=== PATIENT | male | born 1945 | race Caucasian/White ===

== ENCOUNTER 2017-10-28 23:30 | Observation (INO) | payer MEDICARE ==
[2017-10-29 00:27] LABS: #Basophils 0.1 thou/uL (0.0-0.2); #Eosinphils 0.8 thou/uL (0.0-0.7); #Lymphocytes 2.6 thou/uL (1.20-3.40); #Monocytes 0.7 thou/uL (0.11-0.59); #Neutrophils 4.1 thou/uL (1.40-6.50); %Basophils 1.5 % (0.0-1.0); %Lymphocytes 31.6 % (21.0-51.0); %Monocytes 7.9 % (0.0-10.0); Hemoglobin 14.1 g/dL (14.0-18.0); Mean Corpuscular HGB CONC 33.8 g/dL (32.0-36.0); Mean Corpuscular Hemoglobin 32.2 pg (27.0-31.0); Mean Corpuscular Volume 95.4 fL (78.0-98.0); Mean Platelet Volume 8.3 fL (7.4-10.4); Platelet Count 181 thou/uL (130-400); RBC Distribution Width 11.1 % (11.5-14.5); Red Blood Cell (RBC) Count 4.38 mill/uL (4.70-6.10); White Blood Cell (WBC) Count 8.3 thou/uL (4.8-10.8)
[2017-10-29 00:48] LABS: ALT (SGPT) 33 U/L (8-55); AST (SGOT) 21 U/L (5-34); Alkaline Phosphatase 74 U/L (40-150); Anion Gap 16 mmol/L (10-20); BUN (Urea Nitrogen) 23 mg/dL (8.4-25.7); Bilirubin, Total 0.3 mg/dL (0.2-1.2); Calc. Creatinine Clearance 0 mL/min (70-130); Calcium 9.3 mg/dL (7.8-10.44); Carbon Dioxide 20 mmol/L (23-31); Chloride 108 mmol/L (98-107); Estimated GFR-MDRD 65; Globulin 2.6 g/dL (2.4-3.5); Glucose 101 mg/dL (83-110); Potassium 4.5 mmol/L (3.5-5.1); Protein, Total 6.6 g/dL (5.8-8.1); Sodium 139 mmol/L (136-145)
[2017-10-29 00:51] LABS: Troponin I 0.019 ng/mL (< 0.028)
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
[2017-10-29] MEDS ORDERED: Ondansetron ODT 4 MG TAB PO PRN (02:42)
[2017-10-29] MEDS ORDERED: Ondansetron HCl/PF 4 MG/2 ML Vial IVP PRN (02:42)
[2017-10-29] MEDS ORDERED: Acetaminophen 650 MG Suppository PR PRN (02:42)
[2017-10-29] MEDS ORDERED: Nitroglycerin 0.4 MG TAB (25 Tab Bottle) PO PRN (02:42)
[2017-10-29] MEDS ORDERED: Acetaminophen 325 MG TAB PO PRN (02:42)
[2017-10-29 03:52] VITALS: BMI 30.5
[2017-10-29 04:05] LABS: #Eosinphils 0.7 thou/uL (0.0-0.7); #Lymphocytes 2.8 thou/uL (1.20-3.40); #Monocytes 0.6 thou/uL (0.11-0.59); #Neutrophils 3.3 thou/uL (1.40-6.50); %Basophils 0.6 % (0.0-1.0); %Lymphocytes 37.4 % (21.0-51.0); %Monocytes 7.4 % (0.0-10.0); %Neutrophils 44.6 % (42.0-75.0); Hemoglobin 14.2 g/dL (14.0-18.0); Mean Corpuscular HGB CONC 33.9 g/dL (32.0-36.0); Mean Corpuscular Hemoglobin 32.2 pg (27.0-31.0); Mean Corpuscular Volume 95.1 fL (78.0-98.0); Mean Platelet Volume 8.5 fL (7.4-10.4); Platelet Count 164 thou/uL (130-400); Red Blood Cell (RBC) Count 4.39 mill/uL (4.70-6.10); White Blood Cell (WBC) Count 7.4 thou/uL (4.8-10.8)
[2017-10-29 04:27] LABS: ALT (SGPT) 32 U/L (8-55); AST (SGOT) 21 U/L (5-34); Albumin 3.9 g/dL (3.4-4.8); Alkaline Phosphatase 67 U/L (40-150); Anion Gap 15 mmol/L (10-20); BUN (Urea Nitrogen) 22 mg/dL (8.4-25.7); Bilirubin, Total 0.5 mg/dL (0.2-1.2); Calc. Creatinine Clearance 88 mL/min (70-130); Calcium 9.1 mg/dL (7.8-10.44); Carbon Dioxide 21 mmol/L (23-31); Cardiac Risk 4.8 (Less than 4.5); Chloride 107 mmol/L (98-107); Cholesterol 150 mg/dl (< 200 Desired); Estimated GFR-MDRD 70; Globulin 2.4 g/dL (2.4-3.5); Glucose 92 mg/dL (83-110); HDL Cholesterol 31 mg/dL (>60 Neg Risk); LDL Cholesterol, Calculated 91 mg/dL; Potassium 4.3 mmol/L (3.5-5.1); Protein, Total 6.3 g/dL (5.8-8.1); Sodium 139 mmol/L (136-145); Triglycerides 138 mg/dL (Less than 150)
[2017-10-29 04:28] LABS: Troponin I 0.022 ng/mL (< 0.028)
[2017-10-29] MEDS ORDERED: Enoxaparin Sodium 40 MG/0.4 ML SYRINGE SC SCH (09:00)
--- NOTE | 2017-10-29 11:30 | NM ---
CARDIAC SPECT: CLINICAL HISTORY: 61-year-old male with chest pain. TECHNIQUE: A myocardial perfusion scan was performed using the single isotope one day protocol with technetium-9 9m sestamibi. 9 mCi were injected intravenously for the rest exam followed by 27 mCi for the stress e xam. Exercise stress was monitored and interpreted by Dr. Duvall. FINDINGS: Homogeneous tracer distribution is seen in the myocardial segments on stress and rest images without fixed or reversible defects. GATED SPECT LVEF: 58%. WALL MOTION EXAM: Normal. IMPRESSION: Normal myocardial perfusion scan. POS: [facility]
[2017-10-29] MEDS ORDERED: Amlodipine 5 MG TAB PO SCH (12:00)
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
[2017-10-29 16:05] VITALS: BP 126/75; TEMP 98
[2017-10-29] MEDS ORDERED: Rosuvastatin 10 MG TAB PO SCH (21:00)
--- NOTE | 2017-10-30 13:09 | DIS-2 ---
LOCATION: [facility] in [place], [place] DATE OF ADMISSION: 10/29/2017 DATE OF DISCHARGE: 10/29/2017 RESIDENT PHYSICIAN: Shade Turner DO ADMITTING ATTENDING: Benjamin Bansal MD DISCHARGE ATTENDING: Benjamin Bansal MD CONSULTATIONS: Cardiology, Dr. Anjel Duvall PROCEDURES: Exercise nuclear stress test on 10/29/2017 showed normal myocardial perfusion exam, norm al wall motion exam with a normal ejection fraction. PRIMARY DIAGNOSIS: Exertional angina. SECONDARY DIAGNOSIS: Hypertension. DISCHARGE MEDICATIONS: 1. Aspirin 81 mg daily. 2. Amlodipine 5 mg p.o. daily. 3. Nitrostat 0.4 mg sublingual p.r.n. 4. Rosuvastatin 10 mg p.o. at bedtime. DISCONTINUED MEDICATIONS: None. HISTORY OF PRESENT ILLNESS AND HOSPITAL COURSE: The patient is an extremely fit 71-year-old male who initially presented to the ED with a 3-month history of occasional exertional angina, which had subs equently become more persistent the night prior to presentation to the ED. He reports he had adjuste d his exercise regimen prior to presentation over the last few months to resolve the chest pain. He reports the chest pain would come when he reached approximately 73% of his maximum heart rate and it would subside with a decrease in his heart rate. He has no family history of cardiac disease and he works as a regional sales trainer. He is otherwise healthy and had no other complaints on admission. He w as admitted ultimately for observation to rule out acute myocardial infarction and his troponins siria ined negative throughout this hospital stay; last troponin level being 0.022. CBC and CMP were perfo rmed, all of which were within normal limits. His fasting lipid panel showed triglyceride level 138, cholesterol level 150, LDL of 91, HDL of 31. Overall, the patient had an uncomplicated hospital sta y and was ultimately diagnosed with exertional angina with instruction to follow up with his primary care provider. He underwent a cardiac stress test, which was negative and was given antianginal medi cations prior to discharge. He was also instructed to follow up with Cardiology in 2-3 weeks followi ng discharge. DISPOSITION: The patient left the hospital in stable condition. DISCHARGE INSTRUCTIONS: 1. Location: Home. 2. Diet: Heart healthy. 3. Activity: Ad dorita. 4. Follow up with primary care provider in 7-10 days following discharge. Follow up with Cardiology , Dr. Anjel Duvall in 2-3 weeks following discharge.
== END 2017-10-29 17:36 | disposition home or self-care (01) ==
LOC: ERS 23:30 → 2SW 10-29 01:10
PROVIDERS: ADMIT Student in an Organized Health Care Education/Training Program; ATTEND Student in an Organized Health Care Education/Training Program
DX: I20.8 Other forms of angina pectoris (principal); I10 Essential (primary) hypertension; Z79.82 Long term (current) use of aspirin
CPT/HCPCS: 78452; 80053; 80061; 83735; 84484; 85025; 93005; 93017; 99285; A9500; G0378 ×2; 36415

== ENCOUNTER 2018-02-14 21:48 | Inpatient (IN) | payer MEDICARE ==
[2018-02-14 22:17] LABS: #Basophils 0.1 thou/uL (0.0-0.2); #Eosinphils 0.8 thou/uL (0.0-0.7); #Lymphocytes 2.6 thou/uL (1.20-3.40); #Monocytes 0.6 thou/uL (0.11-0.59); #Neutrophils 4.2 thou/uL (1.40-6.50); %Basophils 0.9 % (0.0-1.0); %Eosinophils 9.3 % (0.0-10.0); %Lymphocytes 31.8 % (21.0-51.0); %Monocytes 7.2 % (0.0-10.0); %Neutrophils 50.9 % (42.0-75.0); Hemoglobin 13.9 g/dL (14.0-18.0); Mean Corpuscular HGB CONC 32.2 g/dL (32.0-36.0); Mean Corpuscular Hemoglobin 30.8 pg (27.0-31.0); Mean Corpuscular Volume 95.7 fL (78.0-98.0); Platelet Count 225 thou/uL (130-400); Red Blood Cell (RBC) Count 4.53 mill/uL (4.70-6.10); White Blood Cell (WBC) Count 8.2 thou/uL (4.8-10.8)
[2018-02-14 22:39] LABS: ALT (SGPT) 40 U/L (8-55); AST (SGOT) 26 U/L (5-34); Albumin 4.1 g/dL (3.4-4.8); Alkaline Phosphatase 91 U/L (40-150); Anion Gap 12 mmol/L (10-20); BUN (Urea Nitrogen) 19 mg/dL (8.4-25.7); Bilirubin, Total 0.2 mg/dL (0.2-1.2); CK (CPK) 241 U/L (30-200); Calc. Creatinine Clearance 0 mL/min (70-130); Calcium 9.2 mg/dL (7.8-10.44); Carbon Dioxide 25 mmol/L (23-31); Chloride 108 mmol/L (98-107); Estimated GFR-MDRD 64; Glucose 108 mg/dL (83-110); Potassium 4.3 mmol/L (3.5-5.1); Protein, Total 7.1 g/dL (5.8-8.1); Sodium 141 mmol/L (136-145)
[2018-02-14 22:43] LABS: CKMB 3.9 ng/mL (0-6.6); Troponin I 0.108 ng/mL (< 0.028)
[2018-02-14] MEDS ORDERED: Enoxaparin Sodium 100 MG/ML SYRINGE ONE (22:58)
--- NOTE | 2018-02-14 23:00 | RAD ---
CHEST ONE VIEW: HISTORY: Chest pain. COMPARISON: 10/28/2017 FINDINGS: Slight elongation of the aorta. Normal cardiac silhouette. Pulmonary vessels and hilum are normal. Costophrenic angles are clear. No mass. No consolidation. No pneumothorax or osseous abnormalitie s. IMPRESSION: No acute cardiopulmonary process. POS: [facility]
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
[2018-02-15] MEDS ORDERED: Nitroglycerin 0.4 MG TAB (25 Tab Bottle) PO PRN (01:15)
[2018-02-15] MEDS ORDERED: Acetaminophen 325 MG TAB PO PRN (01:15)
[2018-02-15] MEDS ORDERED: Ondansetron ODT 4 MG TAB PO PRN (01:15)
[2018-02-15 05:45] LABS: Anion Gap 13 mmol/L (10-20); BUN (Urea Nitrogen) 16 mg/dL (8.4-25.7); Calc. Creatinine Clearance 81 mL/min (70-130); Calcium 9.3 mg/dL (7.8-10.44); Carbon Dioxide 27 mmol/L (23-31); Cardiac Risk 3.9 (Less than 4.5); Chloride 108 mmol/L (98-107); Cholesterol 106 mg/dl (< 200 Desired); Estimated GFR-MDRD 67; Glucose 94 mg/dL (83-110); HDL Cholesterol 27 mg/dL (>60 Neg Risk); LDL Cholesterol, Calculated 55 mg/dL; Potassium 4.8 mmol/L (3.5-5.1); Sodium 143 mmol/L (136-145); Triglycerides 120 mg/dL (Less than 150)
[2018-02-15 05:50] LABS: Troponin I 0.125 ng/mL (< 0.028)
--- NOTE | 2018-02-15 06:28 | PDOC.FM ---
- Subjective Subjective: Patient doing well this AM. No significant overnight events. Patient states he is not currently having any chest pain. He states the chest pain yesterday started at rest. It felt as if a belt was being tied around his chest. He denied any radiation of pain or associated nausea, diaphoresis, or shortness of breath. Patient states the pain was relieved with nitro. The pain did return earlier this morning, however, he sat up in bed and leaned forward. As soon as he did that the pain resolved. He did not require any medications. Patient states he saw Dr. Duvall last week and was started on Imdur. The medication has made him feel ill, so he has opted not to take it. A cardiac cath was also discussed at that time, but together they decided to try the medication first. - Objective MAR Reviewed: Yes Vital Signs & Weight: Vital Signs (12 hours) Temp Pulse Resp BP BP Pulse Ox 02/15/18 04:10 98.0 F 82 18 138/77 99 02/15/18 01:15 97 02/15/18 00:24 97.5 F L 71 14 124/66 97 Weight Weight 92.714 kg I&O: 02/13/18 02/14/18 02/15/18 06:59 06:59 06:59 Intake Total 400 Output Total 900 Balance -500 Result Diagrams: 02/14/18 22:08 02/15/18 04:34 EKG Reviewed by me: Yes Radiology Reviewed by me: Yes <Sravanthi Tao - Last Filed: 02/15/18 09:56> - Objective Vital Signs & Weight: Vital Signs (12 hours) Temp Pulse Resp BP BP Pulse Ox 02/15/18 08:00 97.5 F L 65 16 119/70 97 02/15/18 04:10 98.0 F 82 18 138/77 99 02/15/18 01:15 97 02/15/18 00:24 97.5 F L 71 14 124/66 97 Weight Weight 92.714 kg I&O: 02/14/18 02/15/18 02/16/18 06:59 06:59 06:59 Intake Total 400 Output Total 900 Balance -500 Result Diagrams: 02/14/18 22:08 02/15/18 04:34 <Benjamin Bansal - Last Filed: 02/15/18 10:21> Phys Exam - Physical Examination Constitutional: NAD HEENT: sclera anicteric Neck: no nodes Respiratory: clear to auscultation bilateral Cardiovascular: RRR, no significant murmur Gastrointestinal: soft Musculoskeletal: no edema, pulses present Neurological: non-focal Psychiatric: normal affect, A&O x 3 Skin: no rash, cap refill <2 seconds <Sravanthi Tao - Last Filed: 02/15/18 09:56> Dx/Plan (1) Unstable angina Status: Acute (2) Elevated troponin Code(s): R74.8 - ABNORMAL LEVELS OF OTHER SERUM ENZYMES Status: Acute (3) Hypertension Code(s): I10 - ESSENTIAL (PRIMARY) HYPERTENSION Status: Chronic - Plan Plan: 72YO gentleman with a history of stable angina who presented to the ED with a CC of chest pain that has been occurring at rest over the last 1-2 weeks. Unstable angina: - Patient has a known h/o stable angina that has recently progressed to unstable angina per his history. Pain is described as typical chest pain relieved with SL nitro. - Initial troponin slightly elevated at 0.108 but more elevated than it has been compared to previous admissions. Initially went up to 0.130 and then back down to 0.125. - ECG showed NSR. - Was given 325mg ASA & therapeutic lovenox in the ED. Will continue ASA and monitor closely overnight on telemetry. - Will start on prophylactic lovenox as patient currently chest pain free. - NPO and consult cardiology this AM. - Continue home meds - Increased rosuvastatin to 20mh QHS. - FLP wnl HTN: - Patient denies being diagnosed w/ HTN but is on antihypertensive medications. - BP has been well-controlled since admission. - Continue home medications. Dispo: Stable. Will consult cardiology this AM. Appreciate cardiology recommendations. <Sravanthi Tao - Last Filed: 02/15/18 09:56> Attending Addendum - Attending Addendum Date/Time: 02/15/18 1020 I personally evaluated the patient and discussed the management with Dr. Tao. I agree with the History, Examination, Assessment and Plan documented above with any addition or exceptions noted below. Patient known to me presenting with worsening angina at rest over the last 2 weeks. Did not tolerate Imdur as started by Dr. Duvall last week. Trops elevated but downtrending. Hold on further . lovenox but will consult Cardiology due to this unstable angina picture. <Benjamin Bansal - Last Filed: 02/15/18 10:21>
[2018-02-15] MEDS: Aspirin 325 mg Enteric Coated Tablet PO SCH (07:50)
[2018-02-15] MEDS ORDERED: Aspirin 325 MG TAB PO SCH (08:00)
[2018-02-15] MEDS ORDERED: Enoxaparin Sodium 100 MG/ML SYRINGE SC SCH (11:00)
[2018-02-15] MEDS: Amlodipine 5 MG TAB PO SCH (13:10)
[2018-02-15] MEDS: Enoxaparin Sodium 40 MG/0.4 ML SYRINGE SC SCH (20:17)
[2018-02-15] MEDS: Rosuvastatin 10 MG TAB PO SCH (20:17)
[2018-02-15] MEDS ORDERED: Rosuvastatin 20 MG TAB PO SCH (21:00)
--- NOTE | 2018-02-16 06:19 | PDOC.FM ---
- Subjective Subjective: Patient doing well this AM. No significant overnight events. Patient denies any chest pain, shortness of breath, diaphoresis, N/V this AM. - Objective MAR Reviewed: Yes Vital Signs & Weight: Vital Signs (12 hours) Temp Pulse Resp BP Pulse Ox 02/15/18 20:00 94 L 02/15/18 19:28 98.5 F 70 16 134/67 94 L Weight Weight 92.714 kg I&O: 02/14/18 02/15/18 02/16/18 06:59 06:59 06:59 Intake Total 400 Output Total 900 Balance -500 Result Diagrams: 02/14/18 22:08 02/15/18 04:34 EKG Reviewed by me: Yes Radiology Reviewed by me: Yes <Sravanthi Tao - Last Filed: 02/16/18 09:43> - Objective Vital Signs & Weight: Vital Signs (12 hours) Temp Pulse Resp BP Pulse Ox 02/16/18 07:10 97.6 F 62 16 99/65 99 Weight Weight 90.265 kg I&O: 02/15/18 02/16/18 02/17/18 06:59 06:59 06:59 Intake Total 400 490 Output Total 900 550 Balance -500 -60 Result Diagrams: 02/14/18 22:08 02/15/18 04:34 <Benjamin Bansal - Last Filed: 02/16/18 09:57> Phys Exam - Physical Examination Constitutional: NAD HEENT: moist MMs Neck: supple Respiratory: clear to auscultation bilateral Cardiovascular: RRR, no significant murmur Gastrointestinal: soft, no distention, positive bowel sounds Musculoskeletal: no edema, pulses present Neurological: non-focal Psychiatric: normal affect, A&O x 3 Skin: no rash, cap refill <2 seconds <Sravanthi Tao - Last Filed: 02/16/18 09:43> Dx/Plan (1) Unstable angina Status: Acute (2) Elevated troponin Code(s): R74.8 - ABNORMAL LEVELS OF OTHER SERUM ENZYMES Status: Acute (3) Hypertension Code(s): I10 - ESSENTIAL (PRIMARY) HYPERTENSION Status: Chronic - Plan Plan: 72YO gentleman with a history of stable angina who presented to the ED with a CC of chest pain that has been occurring at rest over the last 1-2 weeks. Unstable angina: - Patient has a known h/o stable angina that has recently progressed to unstable angina per his history. Pain is described as typical chest pain relieved with SL nitro. - Initial troponin slightly elevated at 0.108 but more elevated than it has been compared to previous admissions. Initially went up to 0.130 and then back down to 0.125. - ECG showed NSR. No overnight events on telemetry. - Was given 325mg ASA & therapeutic lovenox in the ED. Will continue ASA and monitor closely overnight on telemetry. - Will start on prophylactic lovenox as patient currently chest pain free. - Cardiology consulted; appreciate recs. - Continue home meds - Cardiology has decreased rosuvastatin back down to 10 mg qhs - Plan for cardiac cath by Dr. Duvall on 02/17 - FLP wnl HTN: - Patient denies being diagnosed w/ HTN but is on antihypertensive medications. - BP has been well-controlled since admission. - Continue home medications. - BP this AM 134/67 Dispo: Stable. Cardiology consulted. Plan for cardiac catheterization on 02/[address] Duvall. <Sravanthi Tao - Last Filed: 02/16/18 09:43> (1) NSTEMI (non-ST elevated myocardial infarction) Code(s): I21.4 - NON-ST ELEVATION (NSTEMI) MYOCARDIAL INFARCTION Status: Acute (2) Unstable angina Status: Acute (3) Hypertension Code(s): I10 - ESSENTIAL (PRIMARY) HYPERTENSION Status: Chronic (4) Elevated troponin Code(s): R74.8 - ABNORMAL LEVELS OF OTHER SERUM ENZYMES Status: Acute <Benjamin Bansal - Last Filed: 02/16/18 09:57> Attending Addendum - Attending Addendum Date/Time: 02/16/1857 I personally evaluated the patient and discussed the management with Dr. Tao. I agree with the History, Examination, Assessment and Plan documented above with any addition or exceptions noted below. Patient doing well and no repeat chest pain with exertion. Awaiting [facility] tomorrow with Cardiology. <Benjamin Bansal - Last Filed: 02/16/18 09:57>
[2018-02-16] MEDS: Aspirin 325 mg Enteric Coated Tablet PO SCH (07:52)
[2018-02-16] MEDS: Amlodipine 5 MG TAB PO SCH (12:49)
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
--- NOTE | 2018-02-16 14:45 | ADD-CON ---
ADDENDUM DATE OF ADMISSION: 02/14/2018 DATE OF CONSULTATION: 02/15/2018 Please refer to the notes already dictated by the nurse practitioner, Carlene Darling NP INDICATION FOR CONSULTATION: A 72-year-old patient with chest pain. 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 He noticed the pain starting several months ago. He was seen by Dr. Duvall starting back in October. He has had a negative stre ss test, but was told if he continued to have chest pain, he would need to report to the emergency ro om. Yesterday morning, he had chest pain around 7:00. He said it was relieved by nitroglycerin afte r about 10 or 15 minutes. He described it as being a tightness. He then presented to the emergency room. Enzymes are indeterminate or slightly elevated or slightly abnormal. His troponin I on admiss ion was 0.108 increased up to 0.13 and is now slightly decreased at 0.125. He denies any further karyn st pain. He did have one slight episode this morning after he woke up, he said it resolved very rc marcos. Usually, his pain is resolved by taking the nitroglycerin. He is concerned that he may have so me underlying problems and wants to find an answer whether or not he has underlying coronary artery d isease. 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 He has had no previous cardiac catheterization. As far as his past medical history, social history, family history, review of systems, medications an d allergies, please refer to the notes dictated by the nurse practitioner. PHYSICAL EXAMINATION: GENERAL: Reveals a very pleasant, well-developed, well-nourished gentleman who is in no acute distre ss. He is afebrile. VITAL SIGNS: Heart rate is 70 and shows a normal sinus rhythm, respiratory rate 16, blood pressure 1 36/63, O2 saturation 97%. HEENT: Shows head to be normocephalic and atraumatic. Carotid pulses are present. There were no br uits. There is no JVD. The thyroid is not enlarged. His oral mucosa is pink and moist. CHEST: Clear to auscultation. I did not hear any rales, rhonchi or wheezing. CARDIOVASCULAR: Exam reveals a regular rate and rhythm with a normal S1, S2. There is no S3, S4. T here were no significant murmurs, heaves, thrills, bruits or rubs. ABDOMEN: Soft and nontender. Positive bowel sounds are present. There is no organomegaly or masses noted. Femoral pulses are present. Pedal pulses are present. Radial pulses are present. NEUROLOGIC: Patient appears to be fully intact. I did not elicit any focal motor deficits. He has normal strength and tone. SKIN: Warm and dry. IMPRESSION AND PLAN: Elderly gentleman with possible underlying coronary artery disease which has no t been discovered by stress testing, which has been normal. If he continues to have chest discomfort , somewhat suspicious for coronary artery disease, at this time, we will continue to monitor him very carefully. His enzymes were indeterminate and suggest that he undergo cardiac catheterization on Mo nd with Dr. Duvall unless he becomes unstable in the interim at which time he will undergo cardia c catheterization on an emergent basis. As far as his other medical problems and management, please refer to the notes already dictated. He does have hypertension. This is under good control at this time, would continue his medications. Should he develop further chest discomfort, then he will becom e an emergent cardiac catheterization.
[2018-02-16] MEDS: Rosuvastatin 10 MG TAB PO SCH (21:30)
[2018-02-16] MEDS: Enoxaparin Sodium 40 MG/0.4 ML SYRINGE SC SCH (21:30)
--- NOTE | 2018-02-16 23:32 | PDOC.CTH ---
<Carlene Darling - Last Filed: 02/16/18 23:30> Cardiology Progress Note - Subjective The pt seen and examined. No overnight events. No cardiac complaints. He stated he could have larger meal without any tightness to his chest after Protonix was started. - Objective Vital Signs Temp Pulse Resp BP BP Pulse Ox 02/16/18 19:30 97.6 F 71 16 121/66 95 02/16/18 17:35 97.6 F 72 16 140/70 99 02/16/18 15:30 97.6 F 69 18 113/66 99 02/16/18 12:49 61 Weight 199 lb 02/15/18 02/16/18 02/17/18 06:59 06:59 06:59 Intake Total 400 490 Output Total 900 550 Balance -500 -60 - Physical Examination General/Neuro: alert & oriented x3 Neck: no JVD present Lungs: CTA Heart: RRR Abdomen: soft Extremities: other: (No edema) - Telemetry Telemetry Rhythm: SR - Labs Result Diagrams: 02/14/18 22:08 02/15/18 04:34 Troponin/CKMB CK-MB (CK-2) 3.9 ng/mL (0-6.6) 02/14/18 22:08 Troponin I 0.125 ng/mL (< 0.028) H 02/15/18 04:33 - Assessment/Plan 1. Unstable angina - stable; on Statin and ASA 325mg qd; not on Bbloker or MALLORY/ ARB due to hypotensive 2. HTN - stable 3. Hyperlipidemia - on Statin MAR reviewed * possible LHC tomorrow by Dr Duvall. Review of Systems - Review of Systems Constitutional: reports: no symptoms reported EENTM: reports: no symptoms reported Respiratory: reports: no symptoms reported Cardiac (ROS): reports: no symptoms reported ABD/GI: reports: no symptoms reported : reports: no symptoms reported Musculoskeletal: reports: no symptoms reported Skin: reports: no symptoms reported <Douglas Olsen - Last Filed: 02/16/18 23:34> Cardiology Progress Note - Objective Vital Signs Temp Pulse Resp BP BP Pulse Ox 02/16/18 19:30 97.6 F 71 16 121/66 95 02/16/18 17:35 97.6 F 72 16 140/70 99 02/16/18 15:30 97.6 F 69 18 113/66 99 02/16/18 12:49 61 Weight 199 lb 02/15/18 02/16/18 02/17/18 06:59 06:59 06:59 Intake Total 400 490 Output Total 900 550 Balance -500 -60 - Labs Result Diagrams: 02/14/18 22:08 02/15/18 04:34 Troponin/CKMB CK-MB (CK-2) 3.9 ng/mL (0-6.6) 02/14/18 22:08 Troponin I 0.125 ng/mL (< 0.028) H 02/15/18 04:33 - Assessment/Plan pt.seen and eval.by me.I agreewith the A/Pby the CARD GAME OPERATOR.Possible cath in AM.
[2018-02-16] MEDS ORDERED: Communication Order-Pharmacy FS SCH (23:45)
--- NOTE | 2018-02-17 06:52 | PDOC.FM ---
- Subjective Subjective: Patient doing well this AM. No significant overnight events. Patient denies chest pain, shortness of breath, diaphoresis this AM. - Objective MAR Reviewed: Yes Vital Signs & Weight: Vital Signs (12 hours) Temp Pulse Resp BP Pulse Ox 02/17/18 04:00 97.9 F 63 16 117/65 96 02/16/18 19:30 97.6 F 71 16 121/66 95 Weight Weight 90.265 kg I&O: 02/15/18 02/16/18 02/17/18 06:59 06:59 06:59 Intake Total 400 490 Output Total 900 550 Balance -500 -60 Result Diagrams: 02/14/18 22:08 02/17/18 07:07 EKG Reviewed by me: Yes Radiology Reviewed by me: Yes <Sravanthi Tao - Last Filed: 02/17/18 10:24> - Objective Vital Signs & Weight: Vital Signs (12 hours) Temp Pulse Resp BP BP Pulse Ox 02/17/18 08:00 98.1 F 77 16 113/63 98 02/17/18 04:00 97.9 F 63 16 117/65 96 Weight Weight 90.265 kg I&O: 02/16/18 02/17/18 02/18/18 06:59 06:59 06:59 Intake Total 490 Output Total 550 Balance -60 Result Diagrams: 02/14/18 22:08 02/17/18 07:07 <Srinivasa Mcallister - Last Filed: 02/17/18 11:03> Phys Exam - Physical Examination Constitutional: NAD HEENT: moist MMs Neck: supple Respiratory: no wheezing, clear to auscultation bilateral Cardiovascular: RRR, no significant murmur Gastrointestinal: soft, no distention, positive bowel sounds Musculoskeletal: no edema, pulses present Neurological: non-focal Psychiatric: normal affect, A&O x 3 Skin: no rash, cap refill <2 seconds <Sravanthi Tao - Last Filed: 02/17/18 10:24> Dx/Plan (1) Unstable angina Status: Acute (2) Elevated troponin Code(s): R74.8 - ABNORMAL LEVELS OF OTHER SERUM ENZYMES Status: Acute (3) Hypertension Code(s): I10 - ESSENTIAL (PRIMARY) HYPERTENSION Status: Chronic - Plan Plan: 72YO gentleman with a history of stable angina who presented to the ED with a CC of chest pain that has been occurring at rest over the last 1-2 weeks. Unstable angina: - Patient has a known h/o stable angina that has recently progressed to unstable angina per his history. Pain is described as typical chest pain relieved with SL nitro. - Initial troponin slightly elevated at 0.108 but more elevated than it has been compared to previous admissions. Initially went up to 0.130 and then back down to 0.125. - ECG showed NSR. No overnight events on telemetry. - Was given 325mg ASA & therapeutic lovenox in the ED. Will continue ASA and monitor closely overnight on telemetry. - Will start on prophylactic lovenox as patient currently chest pain free. - Cardiology consulted; appreciate recs. - Continue home meds - Continue rosuvastatin - Plan for cardiac cath by Dr. Duvall this AM. - FLP wnl HTN: - Patient denies being diagnosed w/ HTN but is on antihypertensive medications. - BP has been well-controlled since admission. - Continue home medications. - BP this AM 117/65 Dispo: Stable. Cardiology consulted. Plan for cardiac catheterization this AM. <Sravanthi Tao - Last Filed: 02/17/18 10:24> Attending Addendum - Attending Addendum Date/Time: 02/17/18 1103 I personally evaluated the patient and discussed the management with Dr. Kraft. I agree with the History, Examination, Assessment and Plan documented above with any addition or exceptions noted below. <Srinivasa Mcallister - Last Filed: 02/17/18 11:03>
[2018-02-17 07:36] LABS: PTT 36.8 SEC (22.9-36.1); Prothrombin Time 13.5 SEC (12.0-14.7)
[2018-02-17 08:19] LABS: Anion Gap 13 mmol/L (10-20); BUN (Urea Nitrogen) 17 mg/dL (8.4-25.7); Calc. Creatinine Clearance 69 mL/min (70-130); Calcium 9.9 mg/dL (7.8-10.44); Carbon Dioxide 25 mmol/L (23-31); Chloride 107 mmol/L (98-107); Estimated GFR-MDRD 58; Glucose 94 mg/dL (83-110); Potassium 5.6 mmol/L (3.5-5.1); Sodium 139 mmol/L (136-145)
[2018-02-17] MEDS: Aspirin 325 mg Enteric Coated Tablet PO SCH (09:44)
[2018-02-17] MEDS ORDERED: Lidocaine 1% (PF) 30 ML VIAL ONE (11:34)
[2018-02-17] MEDS: Amlodipine 5 MG TAB PO SCH (12:05)
[2018-02-17] MEDS ORDERED: Heparin 10,000 UNITS/1 ML VIAL ONE (12:46)
[2018-02-17] MEDS ORDERED: Nitroglycerin 100MG/250ML BOT 250 ML ONE (12:47)
[2018-02-17] MEDS ORDERED: Adenosine 6 MG/2 ML VIAL ONE (12:47)
[2018-02-17] MEDS ORDERED: Verapamil 5 MG/2 ML VIAL ONE ×2 (12:47→12:48)
[2018-02-17] MEDS ORDERED: Midazolam HCl 2 mg/2 ml Vial ONE (12:48)
[2018-02-17] MEDS ORDERED: Fentanyl 100 MCG/2 ML VIAL ONE (12:48)
[2018-02-17] MEDS ORDERED: traMADol HCl 50 MG TAB PO PRN (13:10)
[2018-02-17] MEDS ORDERED: Nitroglycerin 0.4 MG TAB (25 Tab Bottle) SL PRN (13:10)
[2018-02-17] MEDS ORDERED: Acetaminophen/Codeine 30-300mg Tablet PO PRN ×2 (13:10)
[2018-02-17] MEDS ORDERED: Sodium Chloride 0.9% 200 ML IV SCH (13:15)
[2018-02-17] MEDS ORDERED: Communication Order-Pharmacy FS ONE (15:13)
[2018-02-17] MEDS ORDERED: Sodium Chloride 0.45% 1,000 ML IV SCH (15:15)
[2018-02-17] MEDS ORDERED: Iopamidol 370 76% 100 ML VIAL ONE (16:42)
[2018-02-17] MEDS ORDERED: Iopamidol 370 76% 50 ML VIAL FS ONE (16:42)
[2018-02-17] MEDS ORDERED: Nitroglycerin 0.4 MG TAB (25 Tab Bottle) ONE (16:57)
[2018-02-17] MEDS: Metoprolol Tartrate 25 MG TAB PO SCH (19:56)
[2018-02-17] MEDS: Rosuvastatin 10 MG TAB PO SCH (19:58)
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
[2018-02-18] MEDS: Metoprolol Tartrate 25 MG TAB PO SCH (05:21)
[2018-02-18] MEDS ORDERED: Heparin 10,000 UNITS/1 ML VIAL 30,000 UNITS in Sodium Chloride 0.9% 1,000 ML IVPB SCH (09:30)
[2018-02-18] MEDS ORDERED: Midazolam HCl 5 mg/5 ml Vial ONE (09:46)
[2018-02-18] MEDS ORDERED: Fentanyl 250 MCG/5 ML VIAL ONE (09:46)
[2018-02-18] MEDS ORDERED: Dexmedetomidine 200 MCG/2 ML VIAL ONE (09:46)
[2018-02-18] MEDS ORDERED: Midazolam HCl 2 mg/2 ml Vial ONE (09:53)
--- NOTE | 2018-02-18 10:20 | ULT ---
CAROTID ULTRASOUND WITH VILLEGAS SCALE AND DOPPLER DUPLEX COLOR FLOW IMAGING SPECTRAL ANALYSIS PERFORMED: COMPARISON: Reference is made to 03/15/2003. INDICATION: RIGHT CAROTID BRUIT FINDINGS: There is scattered mild atherosclerotic calcification of the carotid arteries. PEAK SYSTOLIC VELOCITY (CM/S): Right CCA 126 Left CCA 135 Right ICA 127 Left ICA 102 There is antegrade flow within the visualized bilateral vertebral arteries. IMPRESSION: 1. Elevated velocity indicates moderate (50% to 69%) stenosis of the right internal carotid artery. 2. No hemodynamically significant stenosis of the left internal carotid artery. POS: SKYLER
--- NOTE | 2018-02-18 11:33 | PDOC.FM ---
- Subjective Subjective: Patient doing well this AM. No significant overnight events. Patient states he is just happy that they caught the extent of his cardiac disease now. He is ready to have the CABG done. - Objective MAR Reviewed: Yes Vital Signs & Weight: Vital Signs (12 hours) Temp Pulse Resp BP BP Pulse Ox 02/18/18 04:00 98.4 F 60 16 111/62 94 L 02/18/18 00:00 68 90/54 L Weight Weight 91.427 kg Result Diagrams: 02/14/18 22:08 02/17/18 07:07 EKG Reviewed by me: Yes Radiology Reviewed by me: Yes <Sravanthi Tao - Last Filed: 02/18/18 11:31> - Objective Vital Signs & Weight: Vital Signs (12 hours) Temp Pulse Resp BP Pulse Ox 02/18/18 04:00 98.4 F 60 16 111/62 94 L Weight Weight 91.427 kg Result Diagrams: 02/14/18 22:08 02/17/18 07:07 <Srinivasa Mcallister - Last Filed: 02/18/18 13:48> Phys Exam - Physical Examination Constitutional: NAD HEENT: moist MMs Neck: supple Respiratory: no wheezing, clear to auscultation bilateral Cardiovascular: RRR, no significant murmur Gastrointestinal: soft, non-tender Musculoskeletal: no edema, pulses present Neurological: non-focal, moves all 4 limbs Psychiatric: normal affect, A&O x 3 Skin: no rash, cap refill <2 seconds <Sravanthi Tao - Last Filed: 02/18/18 11:31> Dx/Plan (1) Coronary artery disease Code(s): I25.10 - ATHSCL HEART DISEASE OF [place] CORONARY ARTERY W/O ANG PCTRS Status: Acute (2) Unstable angina Status: Acute (3) Elevated troponin Code(s): R74.8 - ABNORMAL LEVELS OF OTHER SERUM ENZYMES Status: Acute (4) Hypertension Code(s): I10 - ESSENTIAL (PRIMARY) HYPERTENSION Status: Chronic - Plan Plan: 72YO gentleman with a history of stable angina who presented to the ED with a CC of chest pain that has been occurring at rest over the last 1-2 weeks. CAD - Diagnosed on cardiac cath yesterday - Plan for CABG today Unstable angina: - Patient has a known h/o stable angina that has recently progressed to unstable angina per his history. Pain is described as typical chest pain relieved with SL nitro. - Initial troponin slightly elevated at 0.108 but more elevated than it has been compared to previous admissions. Initially went up to 0.130 and then back down to 0.125. - ECG showed NSR. No overnight events on telemetry. - Was given 325mg ASA & therapeutic lovenox in the ED. Will continue ASA and monitor closely overnight on telemetry. - Cardiology consulted; appreciate recs. - Continue home meds - Continue rosuvastatin - FLP wnl - Cardiac cath showed severe disease (>90% in two separate vessels); plan for CABG today HTN: - Patient denies being diagnosed w/ HTN but is on antihypertensive medications. - BP has been well-controlled since admission. - Continue home medications. Dispo: Stable. Cardiology and CV surgery consulted. Plan for CABG today. Patient will go to ICU after procedure. <Sravanthi Tao - Last Filed: 02/18/18 11:31> Attending Addendum - Attending Addendum Date/Time: 02/18/18 6527 I personally evaluated the patient and discussed the management with Dr. Tao. I agree with the History, Examination, Assessment and Plan documented above with any addition or exceptions noted below. <Srinivasa Mcallister - Last Filed: 02/18/18 13:48>
[2018-02-18] MEDS ORDERED: Albumin 5% 500 ML ONE (12:26)
[2018-02-18] MEDS ORDERED: Guaifenesin DM 100-10/5 ML UDCUP PO PRN (14:40)
[2018-02-18] MEDS ORDERED: Morphine 2 MG/ML SYRINGE SLOW IVP PRN (14:40)
[2018-02-18] MEDS ORDERED: Fentanyl 100 MCG/2 ML VIAL SLOW IVP PRN ×2 (14:40)
[2018-02-18] MEDS ORDERED: Norepinephrine 8 MG/0.9% NS 250 ML IVPB PRN (14:40)
[2018-02-18] MEDS ORDERED: Bisacodyl 5 MG TAB PO PRN (14:40)
[2018-02-18] MEDS ORDERED: niCARdipine HCl 25 MG in Sodium Chloride 0.9% 250 ML 240 ML IVPB PRN (14:40)
[2018-02-18] MEDS ORDERED: DOPamine 400 MG/D5W 250 ML 250 ML IVPB PRN (14:40)
[2018-02-18] MEDS ORDERED: Mag-Al 1200 mg/1200 mg/30 ML UDCUP PO PRN (14:40)
[2018-02-18] MEDS ORDERED: hydrALAZINE 20 MG/ML VIAL SLOW IVP PRN (14:40)
[2018-02-18] MEDS ORDERED: Hetastarch 6% 500 ML 500 ML IVPB PRN (14:40)
[2018-02-18] MEDS ORDERED: Promethazine HCl 25 MG/ML VIAL IM PRN (14:40)
[2018-02-18] MEDS ORDERED: Acetaminophen 325 MG TAB PO PRN (14:40)
[2018-02-18] MEDS ORDERED: HYDROcodone/Acetaminophen 5/325 mg Tablet PO PRN (14:40)
[2018-02-18] MEDS ORDERED: Bisacodyl 10 MG SUPP PR PRN (14:40)
[2018-02-18] MEDS ORDERED: Nitroglycerin 50 MG/250 ML BOT 250 ML IVPB PRN (14:40)
[2018-02-18] MEDS ORDERED: CEFAZOLIN/Water 2 GM/20 ML SYRINGE SLOW IVP SCH (14:40)
[2018-02-18] MEDS ORDERED: Post-Op Insulin Drip Protocol IVPB ONE (14:40)
[2018-02-18] MEDS ORDERED: Ondansetron PF 4 MG/2 ML Vial IVP PRN (14:40)
[2018-02-18] MEDS ORDERED: Potassium Chloride 20 MEQ/100 ML PREMIX BAG IVPB PRN (14:40)
[2018-02-18] MEDS ORDERED: Dextrose 5% in Water 1,000 ML IV PRN (14:43)
[2018-02-18] MEDS ORDERED: Dextrose 50% Abboject 50 ML SYRINGE SLOW IVP PRN (14:43)
[2018-02-18 14:49] LABS: #Basophils 0.1 thou/uL (0.0-0.2); #Eosinphils 0.2 thou/uL (0.0-0.7); #Lymphocytes 1.2 thou/uL (1.20-3.40); #Monocytes 0.6 thou/uL (0.11-0.59); %Basophils 0.7 % (0.0-1.0); %Eosinophils 1.8 % (0.0-10.0); %Lymphocytes 9.6 % (21.0-51.0); %Monocytes 4.6 % (0.0-10.0); %Neutrophils 83.4 % (42.0-75.0); Hemoglobin 12.2 g/dL (14.0-18.0); Mean Corpuscular HGB CONC 33.3 g/dL (32.0-36.0); Mean Corpuscular Hemoglobin 31.8 pg (27.0-31.0); Mean Corpuscular Volume 95.3 fL (78.0-98.0); Mean Platelet Volume 8.7 fL (7.4-10.4); Platelet Count 148 thou/uL (130-400); Red Blood Cell (RBC) Count 3.83 mill/uL (4.70-6.10)
[2018-02-18 14:55] LABS: INR-International Normal Ratio 1.3; Prothrombin Time 16.3 SEC (12.0-14.7)
[2018-02-18 14:56] LABS: PTT 39.3 SEC (22.9-36.1)
[2018-02-18] MEDS ORDERED: Magnesium 2 GM/50 ML 2 GM in Premix Bag 1 BAG IVPB SCH (15:00)
[2018-02-18 15:02] LABS: Actual Bicarbonate (HCO3a) 24.4 mEq/L (22-28); Base Excess (BEa) -2.8 mEq/L (-2.0 to +3.0); CO2 Tension 53.2 mmHg (35.0-45.0); Calcium, Ionized 1.11 mmol/L (1.12-1.30); Carboxyhemoglobin (COHb) 0.7 gm% (0.0-3.0); Hemoglobin (Hb) 12.3 g/dL (14.0-18.0); O2 Tension (PaO2) 96.9 mmHg (> 70.0); Potassium - ABG Lab 3.91 mmol/L (3.70-5.30); pH, Arterial 7.28 (7.35-7.45)
[2018-02-18] MEDS: Sodium Chloride 0.9% 1,000 ML IV SCH (15:03)
[2018-02-18] MEDS: CEFAZOLIN 2 GM/50 ML-DEXTROSE 2 GM in Premix Bag 1 BAG IVPB SCH ×2 (15:03→22:30)
[2018-02-18 15:04] LABS: Puncture Site ALINE
[2018-02-18 15:19] LABS: Anion Gap 10 mmol/L (10-20); BUN (Urea Nitrogen) 14 mg/dL (8.4-25.7); Calc. Creatinine Clearance 100 mL/min (70-130); Calcium 7.7 mg/dL (7.8-10.44); Carbon Dioxide 24 mmol/L (23-31); Chloride 111 mmol/L (98-107); Estimated GFR-MDRD 87; Glucose 123 mg/dL (83-110); Sodium 141 mmol/L (136-145)
[2018-02-18] MEDS ORDERED: Heparin 30,000 units/30 ml VIAL ONE (16:25)
[2018-02-18] MEDS ORDERED: Aminocaproic Acid 5 GM/20 ML VIAL ONE (16:25)
[2018-02-18] MEDS ORDERED: Cardioplegic Soln 1,000 ML BAG ONE (16:25)
[2018-02-18] MEDS ORDERED: Vecuronium 10 MG VIAL ONE (16:25)
[2018-02-18] MEDS ORDERED: Lidocaine 2% PF 100 mg/5 ml Syringe ONE (16:25)
[2018-02-18] MEDS ORDERED: Potassium Chloride 60 MEQ/30 ML VIAL ONE (16:25)
[2018-02-18] MEDS ORDERED: Thrombin 5000 UNITS/5 ML VIAL ONE (16:25)
[2018-02-18] MEDS ORDERED: Papaverine 60 MG/2 ML VIAL ONE (16:25)
[2018-02-18] MEDS ORDERED: Calcium Chloride 1 GM/10 ML Abboject SYRINGE ONE (16:25)
[2018-02-18] MEDS ORDERED: Magnesium 5 GM/10 ML VIAL ONE (16:25)
[2018-02-18] MEDS ORDERED: Heparin 5,000 UNITS/ML VIAL ONE (16:25)
[2018-02-18] MEDS ORDERED: Sodium Bicarb 50 MEQ/50 ML VIAL ONE (16:25)
[2018-02-18] MEDS ORDERED: ePHEDrine/0.9% NaCl/PF SYRINGE 50 mg/10 ml ONE (16:25)
[2018-02-18] MEDS ORDERED: Nitroglycerin 50 MG/250 ML BOT ONE (16:25)
[2018-02-18] MEDS ORDERED: PROPOFOL 200 MG/20 ML VIAL ONE (16:25)
[2018-02-18] MEDS ORDERED: Mannitol 12.5 GM/50 ML ONE (16:25)
[2018-02-18 17:04] LABS: Actual Bicarbonate (HCO3a) 20.4 mEq/L (22-28); Base Excess (BEa) -4.6 mEq/L (-2.0 to +3.0); CO2 Tension 37.6 mmHg (35.0-45.0); Calcium, Ionized 1.09 mmol/L (1.12-1.30); Carboxyhemoglobin (COHb) 1.1 gm% (0.0-3.0); Hemoglobin (Hb) 13.1 g/dL (14.0-18.0); O2 Tension (PaO2) 68.5 mmHg (> 70.0); Potassium - ABG Lab 3.87 mmol/L (3.70-5.30); pH, Arterial 7.35 (7.35-7.45)
[2018-02-18 17:06] LABS: Puncture Site ALINE
[2018-02-18] MEDS: Ketorolac Tromethamine 30 MG/ML VIAL IVP SCH ×2 (17:19→23:14)
--- NOTE | 2018-02-18 17:22 | EKG ---
Test Reason : POST CABG Blood Pressure : / mmHG Vent. Rate : 074 BPM Atrial Rate : 074 BPM P-R Int : 160 ms QRS Dur : 100 ms QT Int : 416 ms P-R-T Axes : 049 015 068 degrees QTc Int : 461 ms Normal sinus rhythm Normal ECG When compared with ECG of 14-FEB-2018 21:56, (Unconfirmed) Nonspecific T wave abnormality no longer evident in Inferior leads Nonspecific T wave abnormality no longer evident in Anterior leads QT has lengthened Confirmed by SHRADDHA MICHELE, SGiovanna ([id number]) on 02/18/2018 5:21:36 PM Referred By: JOE Confirmed By:DR. Nunu LLANES MD
[2018-02-18] MEDS: Insulin Regular 300 UNITS/3 ML VIAL SC PRN ×2 (18:40→23:45)
--- NOTE | 2018-02-18 18:46 | RAD ---
PORTABLE CHEST 1 VIEW: Date: 02/18/18 Time: 1340 hours HISTORY: Postop open heart surgery, respiratory failure. FINDINGS/IMPRESSION: Comparison made with exam of 02/14/18. Interval changes of median sternotomy present. There is an endotracheal tube with tip at the level of the clavicular heads. There is a right subclavian central line with tip in the projection of the cav oatrial junction. Mediastinal drain and left-sided chest tube are present. No pneumothoraces, focal a reas of consolidation, or large effusions are identified. POS: OFF
[2018-02-18 20:13] LABS: Hemoglobin 12.8 g/dL (14.0-18.0)
[2018-02-18 20:27] LABS: Potassium 4.3 mmol/L (3.5-5.1)
[2018-02-18] MEDS: Famotidine/PF 20 mg/2ml Vial SLOW IVP SCH (20:28)
[2018-02-18] MEDS ORDERED: Atorvastatin Calcium 10 MG TAB PO SCH (21:00)
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
--- NOTE | 2018-02-19 03:31 | PDOC.FM ---
- Subjective Subjective: Patient doing well overnight. No significant overnight events. Patient doing well post-op day #1 from CABG. He states his pain is well controlled. He has been up walking around in his room. - Objective MAR Reviewed: Yes Vital Signs & Weight: Vital Signs (12 hours) Temp Pulse Resp BP Pulse Ox 02/19/18 00:00 98.8 F 83 15 100/50 L 02/18/18 20:00 97.6 F 100 02/18/18 17:09 89 18 99 02/18/18 16:00 98 F Weight Weight 91.427 kg Most Recent Monitor Data Heart Rate from ECG 88 NIBP 111/62 NIBP BP-Mean 78 Respiration from ECG 13 SpO2 100 I&O: 02/17/18 02/18/18 02/19/18 06:59 06:59 06:59 Intake Total 1158 Output Total 1053 Balance 105 Result Diagrams: 02/19/18 04:15 02/19/18 04:15 EKG Reviewed by me: Yes Radiology Reviewed by me: Yes <Sravanthi Tao - Last Filed: 02/19/18 11:24> - Objective Vital Signs & Weight: Vital Signs (12 hours) Temp Pulse Resp BP Pulse Ox 02/19/18 09:57 99 02/19/18 07:37 97 02/19/18 07:00 99.1 F 02/19/18 04:34 100 02/19/18 00:00 98.8 F 83 15 100/50 L Weight Weight 88.7 kg Most Recent Monitor Data Heart Rate from ECG 77 NIBP 106/62 NIBP BP-Mean 76 Respiration from ECG 0 SpO2 100 I&O: 02/18/18 02/19/18 02/20/18 06:59 06:59 06:59 Intake Total 2431 120 Output Total 1183 150 Balance 1248 -30 Result Diagrams: 02/19/18 04:15 02/19/18 04:15 <Srinivasa Mcallister - Last Filed: 02/19/18 11:59> Phys Exam - Physical Examination Constitutional: NAD HEENT: moist MMs Neck: supple Respiratory: no wheezing, clear to auscultation bilateral Cardiovascular: RRR, no significant murmur 2 mediastinal chest tubes in place draining 550 mL Gastrointestinal: soft, non-tender, no distention Musculoskeletal: no edema, pulses present Neurological: non-focal Psychiatric: normal affect, A&O x 3 Skin: cap refill <2 seconds <Sravanthi Tao - Last Filed: 02/19/18 11:24> Dx/Plan (1) Coronary artery disease Code(s): I25.10 - ATHSCL HEART DISEASE OF [place] CORONARY ARTERY W/O ANG PCTRS Status: Acute (2) Unstable angina Status: Acute (3) Elevated troponin Code(s): R74.8 - ABNORMAL LEVELS OF OTHER SERUM ENZYMES Status: Acute (4) Hypertension Code(s): I10 - ESSENTIAL (PRIMARY) HYPERTENSION Status: Chronic - Plan Plan: 72YO gentleman with a history of stable angina who presented to the ED with a CC of chest pain that has been occurring at rest over the last 1-2 weeks. Severe 3V CAD s/p CABG - Post op day #1 - 2 mediastinal chest tubes in place draining appx 550 mL - Patient tolerating PO - MAP <65 this AM with BP's in 60's to 70's. Patient started on IVF. MAP and BP improved. - Continue to monitor urine output. Urine output averaging 25 mL/hr. Started on IVF. Will continue to monitor. - FLP wnl. - Cardiology and CV surgery consulted; appreciate recs. - Continue rosuvastatin. Increased dose to 20 mg per cards. - Continue home meds. HTN: - Patient denies being diagnosed w/ HTN but is on antihypertensive medications. - BP has been well-controlled since admission. BP since surgery has been running low. - Continue home medications as tolerated. Dispo: Stable. Cardiology and CV surgery consulted. Post-op day #1. Will continue to follow cardiology and CV surgery recs. <Sravanthi Tao - Last Filed: 02/19/18 11:24> Attending Addendum - Attending Addendum Date/Time: 02/19/18 9907 I personally evaluated the patient and discussed the management with Dr. Tao. I agree with the History, Examination, Assessment and Plan documented above with any addition or exceptions noted below. <Srinivasa Mcallister - Last Filed: 02/19/18 11:59>
[2018-02-19] MEDS: HYDROcodone/Acetaminophen 5/325 mg Tablet PO PRN ×2 (04:10→14:54)
[2018-02-19] MEDS: Sodium Chloride 0.9% 1,000 ML IV SCH ×3 (04:16→19:54)
[2018-02-19 04:45] LABS: Anion Gap 10 mmol/L (10-20); BUN (Urea Nitrogen) 15 mg/dL (8.4-25.7); Calc. Creatinine Clearance 99 mL/min (70-130); Calcium 7.8 mg/dL (7.8-10.44); Carbon Dioxide 23 mmol/L (23-31); Chloride 111 mmol/L (98-107); Estimated GFR-MDRD 86; Glucose 112 mg/dL (83-110); Potassium 4.1 mmol/L (3.5-5.1); Sodium 140 mmol/L (136-145)
[2018-02-19 05:03] LABS: #Lymphocytes 1.6 thou/uL (1.20-3.40); #Monocytes 1.2 thou/uL (0.11-0.59); #Neutrophils 9.7 thou/uL (1.40-6.50); %Basophils 0.2 % (0.0-1.0); %Eosinophils 0.2 % (0.0-10.0); %Lymphocytes 12.6 % (21.0-51.0); %Monocytes 9.3 % (0.0-10.0); %Neutrophils 77.8 % (42.0-75.0); Hemoglobin 11.8 g/dL (14.0-18.0); Mean Corpuscular HGB CONC 32.7 g/dL (32.0-36.0); Mean Corpuscular Hemoglobin 31.1 pg (27.0-31.0); Mean Platelet Volume 9.7 fL (7.4-10.4); Platelet Count 180 thou/uL (130-400); Red Blood Cell (RBC) Count 3.78 mill/uL (4.70-6.10); White Blood Cell (WBC) Count 12.4 thou/uL (4.8-10.8)
[2018-02-19] MEDS: Ketorolac Tromethamine 30 MG/ML VIAL IVP SCH ×4 (05:33→23:34)
[2018-02-19] MEDS: CEFAZOLIN 2 GM/50 ML-DEXTROSE 2 GM in Premix Bag 1 BAG IVPB SCH (06:53)
--- NOTE | 2018-02-19 07:50 | OP ---
DATE OF PROCEDURE: 02/18/2018 PREOPERATIVE DIAGNOSIS: Coronary artery disease. PROCEDURE: Coronary bypass graft x3, good quality [place] to a 1.5 mm LAD to free of disease distally, small saphenous vein to a 1.5 mm ramus and a 1.5 mm OM, both of which were free of disease. SURGEON: Eddie Boo M.D. SHEET [employer]OCK TAPER HELPER: Dr. Marc Hassan TRANSFUSION: None. PROCEDURE IN DETAIL: After adequate anesthesia had been obtained, the patient was prepped and draped . Dr. Hassan did an endovascular vein harvest of the left greater saphenous vein. There were 2 vein components of superficial and deep. Initially he tried to harvest the superficial component, but thi s could not be done and he then harvested the subfascial component. I performed a median sternotomy and after this had been done, the left internal mammary artery was harvested. The patient heparinize d, the mammary divided distally. It was passed posterior to the thymus gland. Aorta and right atriu m were cannulated and cardiopulmonary bypass was instituted. The heart was not enlarged. Three dist al anastomoses were completed after the cross-clamp had been applied and a liter of cold [place] car dioplegic solution was given. Following completion of this, the cross-clamp was removed and the part ial occluding clamp placed, and 2 proximal anastomoses performed on the aortic root. After this had been done, the distal anastomoses were inspected and were hemostatic. The patient was then fully rew armed and weaned from cardiopulmonary bypass. Cannulas were removed and the aortic cannulation site secured with a 4-0 Prolene suture. Protamine was administered. A mediastinal and left pleural drain were placed following which the sternum was reapproximated with #7 interrupted wire using vancomycin paste on the sternal edges, platelet-enriched blood, and platelet-poor plasma. Subcutaneous tissue and skin were closed in layers.
--- NOTE | 2018-02-19 07:53 | RAD ---
CHEST 1 VIEW: HISTORY: A 72-year-old male with a history of postop open heart. COMPARISON: 02/18/2018. FINDINGS: Recent postop midline sternotomy. Endotracheal tube has been removed. Right subclavian catheter in place. Chest tubes in place. Minimal bilateral vascular congestion with some increased markings, pa rticularly in the left lower chest, evidence for some postoperative change. No pneumothorax or other acute process. IMPRESSION: Stable postoperative changes of the chest. Continue short-term followup. POS: SKYLER
[2018-02-19] MEDS: Famotidine/PF 20 mg/2ml Vial SLOW IVP SCH ×2 (08:50→19:56)
[2018-02-19] MEDS ORDERED: Aspirin 325 MG TAB PO SCH (09:00)
[2018-02-19 09:04] VITALS: BMI 28.0
--- NOTE | 2018-02-19 15:18 | PRG ---
DATE OF SERVICE: 02/19/2018 SERVICE: Pulmonary Medicine. INTERVAL HISTORY: The patient is doing really well from respiratory standpoint. He denies any current chest pain, fevers, chills, nausea, or vomiting. He is breathing comfortably. His chest discomfort is nothing more than he would expect at this point. He denies having any cough or hemoptysis. He is breathing comfortably. OBJECTIVE: VITAL SIGNS: Afebrile. Pulse 92, blood pressure 102/65, respirations 24, and saturation 96% on 2 L nasal cannula. GENERAL: The patient is awake and alert, in no apparent distress. LUNGS: Excellent air entry. There are minimal dependent crackles present. There is decreased air entry in the left compared to the right. HEART: Normal rate and regular. ABDOMEN: Soft, nontender, and nondistended. Bowel sounds are positive. MUSCULOSKELETAL: No cyanosis or clubbing. There is no pitting in the bilateral lower extremities. NEUROLOGIC: Grossly nonfocal. LABORATORY DATA: WBC is 12.4, hemoglobin 11.8, and platelets 180,000. Basic metabolic profile is unremarkable except for a chloride of 111, which is stable. IMAGING STUDIES: Chest x-ray demonstrates stable postop changes. There is a right subclavian central venous catheter, which terminates in good position. Sternotomy wires are present. Mediastinal drain is noted. There is volume loss on the left and a distended gastric bubble versus air in the colon. ASSESSMENT: 1. Acute hypoxic respiratory failure, improving. 2. Coronary artery disease, status post coronary artery bypass graft, postop day #1. DISCUSSION AND PLAN: Routine postop care will be continued. Pulmonary Critical Care will continue to follow along in this location. Please call with additional questions or concerns moving forward. Job ID: [id number]
[2018-02-19] MEDS ORDERED: Rosuvastatin 20 MG TAB PO SCH (21:00)
[2018-02-20] MEDS: Ketorolac Tromethamine 30 MG/ML VIAL IVP SCH (05:14)
[2018-02-20] MEDS: HYDROcodone/Acetaminophen 5/325 mg Tablet PO PRN (05:15)
[2018-02-20 05:56] LABS: #Basophils 0.1 thou/uL (0.0-0.2); #Eosinphils 0.1 thou/uL (0.0-0.7); #Lymphocytes 1.3 thou/uL (1.20-3.40); #Neutrophils 8.3 thou/uL (1.40-6.50); %Basophils 1.1 % (0.0-1.0); %Eosinophils 0.7 % (0.0-10.0); %Lymphocytes 11.7 % (21.0-51.0); %Neutrophils 77.5 % (42.0-75.0); Hemoglobin 10.7 g/dL (14.0-18.0); Mean Corpuscular Hemoglobin 30.8 pg (27.0-31.0); Mean Corpuscular Volume 96.2 fL (78.0-98.0); Mean Platelet Volume 9.9 fL (7.4-10.4); Platelet Count 138 thou/uL (130-400); RBC Distribution Width 11.2 % (11.5-14.5); Red Blood Cell (RBC) Count 3.48 mill/uL (4.70-6.10); White Blood Cell (WBC) Count 10.7 thou/uL (4.8-10.8)
[2018-02-20 06:13] LABS: Anion Gap 10 mmol/L (10-20); BUN (Urea Nitrogen) 16 mg/dL (8.4-25.7); Calc. Creatinine Clearance 85 mL/min (70-130); Calcium 8.4 mg/dL (7.8-10.44); Carbon Dioxide 24 mmol/L (23-31); Chloride 110 mmol/L (98-107); Estimated GFR-MDRD 70; Glucose 98 mg/dL (83-110); Potassium 3.8 mmol/L (3.5-5.1); Sodium 140 mmol/L (136-145)
[2018-02-20] MEDS: Sodium Chloride 0.9% 1,000 ML IV SCH (06:18)
[2018-02-20] MEDS ORDERED: Ondansetron PF 4 MG/2 ML Vial IVP PRN (06:59)
[2018-02-20] MEDS ORDERED: Mag-Al 1200 mg/1200 mg/30 ML UDCUP PO PRN (06:59)
[2018-02-20] MEDS ORDERED: Nitroglycerin 0.4 MG TAB (25 Tab Bottle) SL PRN (06:59)
[2018-02-20] MEDS ORDERED: Mineral Oil ENEMA PR PRN (06:59)
[2018-02-20] MEDS ORDERED: Bisacodyl 5 MG TAB PO PRN (06:59)
[2018-02-20] MEDS ORDERED: Fentanyl 100 MCG/2 ML VIAL SLOW IVP PRN (06:59)
[2018-02-20] MEDS ORDERED: HYDROcodone/Acetaminophen 5/325 mg Tablet PO PRN ×2 (06:59)
[2018-02-20] MEDS ORDERED: Guaifenesin DM 100-10/5 ML UDCUP PO PRN (06:59)
[2018-02-20] MEDS ORDERED: Bisacodyl 10 MG SUPP PR PRN (06:59)
[2018-02-20] MEDS: Potassium Chloride 10 MEQ TAB PO SCH (07:25)
[2018-02-20] MEDS: Furosemide 40 MG TAB PO SCH (07:26)
[2018-02-20] MEDS: Famotidine 20 MG TAB PO SCH ×2 (07:26→20:41)
[2018-02-20] MEDS: Aspirin 325 mg Enteric Coated Tablet PO SCH (07:26)
[2018-02-20] MEDS: Polyethylene Glycol 3350 17 GM Packet PO SCH (07:29)
--- NOTE | 2018-02-20 08:11 | RAD ---
CHEST 1 VIEW PORTABLE: Date: 02/20/18 HISTORY: 72-year-old male with history of postop open heart. FINDINGS: Recent postop midline surgical changes with chest tubes and right central line in place. There are mo derate patchy parenchymal changes in the left mid and lower lung zone and left lower lobe with some l eft pleural effusion, evidence for some postoperative change, possibly some atelectasis versus some d eveloping pneumonitis. These parenchymal changes appear more prominent than on the 02/19/18 study. IMPRESSION: Some worsening parenchymal changes in the left mid and lower lung zone with some left pleural effusio n. No pneumothorax. Stable right chest. Continue short-term follow-up. POS: SKYLER
[2018-02-20 09:15] LABS: Actual Bicarbonate (HCO3a) 20.2 mEq/L (22-28); Analyzer IN Cardio OR; Base Excess (BEa) -3.6 mEq/L (-2.0 to +3.0); CO2 Tension 32.3 mmHg (35.0-45.0); Carboxyhemoglobin (COHb) 0.1 gm% (0.0-3.0); Hemoglobin (Hb) 10.1 g/dL (14.0-18.0); O2 Tension (PaO2) 333.7 mmHg (> 70.0); Potassium - ABG Lab 4.07 mmol/L (3.70-5.30); pH, Arterial 7.42 (7.35-7.45)
[2018-02-20 09:16] LABS: Analyzer IN Cardio OR; Base Excess (BEa) -1.8 mEq/L (-2.0 to +3.0); Calcium, Ionized 1.01 mmol/L (1.12-1.30); Carboxyhemoglobin (COHb) 0.3 gm% (0.0-3.0); Hemoglobin (Hb) 10.2 g/dL (14.0-18.0); O2 Tension (PaO2) 374.8 mmHg (> 70.0); Potassium - ABG Lab 4.65 mmol/L (3.70-5.30); pH, Arterial 7.43 (7.35-7.45)
[2018-02-20 09:16] LABS: Actual Bicarbonate (HCO3a) 23.3 mEq/L (22-28); Analyzer IN Cardio OR; Base Excess (BEa) 0.3 mEq/L (-2.0 to +3.0); CO2 Tension 31.7 mmHg (35.0-45.0); Calcium, Ionized 1.11 mmol/L (1.12-1.30); Carboxyhemoglobin (COHb) 0.2 gm% (0.0-3.0); Hemoglobin (Hb) 9.7 g/dL (14.0-18.0); Potassium - ABG Lab 4.43 mmol/L (3.70-5.30); pH, Arterial 7.49 (7.35-7.45)
[2018-02-20 09:16] LABS: Actual Bicarbonate (HCO3v) 24 mEq/L (22-28); Analyzer IN Cardio OR; Base Excess -0.9 mEq/L (-2.0 to +3.0); Calcium, Ionized 1.02 mmol/L (1.16-1.32); Chloride (ABG LAB) 108 mmol/L (98-106); Hemoglobin (Hb) 10.4 g/dL (12.6-17.4); Potassium - ABG Lab 4.51 mmol/L (3.70-5.30); Sodium 136.6 mmol/L (133-146); pH (venous) 7.38 (7.32-7.43)
[2018-02-20 09:17] LABS: Actual Bicarbonate (HCO3a) 22.1 mEq/L (22-28); Analyzer IN Cardio OR; Base Excess (BEa) -1.8 mEq/L (-2.0 to +3.0); CO2 Tension 35.2 mmHg (35.0-45.0); Calcium, Ionized 1.12 mmol/L (1.12-1.30); Carboxyhemoglobin (COHb) 0.2 gm% (0.0-3.0); Hemoglobin (Hb) 13.3 g/dL (14.0-18.0); Potassium - ABG Lab 4.09 mmol/L (3.70-5.30); pH, Arterial 7.42 (7.35-7.45)
[2018-02-20 09:17] LABS: Actual Bicarbonate (HCO3a) 22.4 mEq/L (22-28); Analyzer IN Cardio OR; Base Excess (BEa) -3.7 mEq/L (-2.0 to +3.0); CO2 Tension 44.6 mmHg (35.0-45.0); Carboxyhemoglobin (COHb) 0.7 gm% (0.0-3.0); Hemoglobin (Hb) 10.4 g/dL (14.0-18.0); O2 Tension (PaO2) 65.9 mmHg (> 70.0); Potassium - ABG Lab 4.25 mmol/L (3.70-5.30); pH, Arterial 7.32 (7.35-7.45)
[2018-02-20 09:18] LABS: Actual Bicarbonate (HCO3a) 23.5 mEq/L (22-28); Analyzer IN Cardio OR; Base Excess (BEa) -0.8 mEq/L (-2.0 to +3.0); CO2 Tension 37.8 mmHg (35.0-45.0); Calcium, Ionized 1.14 mmol/L (1.12-1.30); Carboxyhemoglobin (COHb) 0.7 gm% (0.0-3.0); Hemoglobin (Hb) 13.5 g/dL (14.0-18.0); O2 Tension (PaO2) 488.5 mmHg (> 70.0); pH, Arterial 7.41 (7.35-7.45)
[2018-02-20 09:26] LABS: Puncture Site ALINE
[2018-02-20 09:28] LABS: O2 Tension (PaO2) 542.9 mmHg (> 70.0); Puncture Site ALINE
[2018-02-20 09:29] LABS: Puncture Site ALINE
[2018-02-20 09:29] LABS: Puncture Site ALINE
[2018-02-20 09:30] LABS: Puncture Site ALINE
[2018-02-20 09:31] LABS: Puncture Site ALINE
[2018-02-20] MEDS: Metoprolol Tartrate 25 MG TAB PO SCH ×2 (09:43→20:41)
--- NOTE | 2018-02-20 11:02 | PDOC.FM ---
- Subjective Subjective: Patient doing well this AM. No significant overnight events. Patient had chest tubes taken out this AM. He has been up walking around and feels pretty good. Denies chest pain or shortness of breath. - Objective MAR Reviewed: Yes Vital Signs & Weight: Vital Signs (12 hours) Temp Pulse Resp BP Pulse Ox 02/20/18 09:47 98.5 F 100 20 134/85 92 L 02/20/18 04:00 94 L 02/20/18 03:00 99.9 F H 02/19/18 23:00 98.7 F Weight Weight 93.1 kg Most Recent Monitor Data Heart Rate from ECG 85 NIBP 121/66 NIBP BP-Mean 84 Respiration from ECG 22 SpO2 95 I&O: 02/19/18 02/20/18 02/21/18 06:59 06:59 06:59 Intake Total 2431 1414 480 Output Total 1183 1520 Balance 1248 106 480 Result Diagrams: 02/20/18 05:30 02/20/18 05:30 EKG Reviewed by me: Yes Radiology Reviewed by me: Yes <Sravanthi Tao - Last Filed: 02/20/18 10:59> - Objective Vital Signs & Weight: Vital Signs (12 hours) Temp Pulse Resp BP Pulse Ox 02/20/18 09:47 98.5 F 100 20 134/85 92 L 02/20/18 04:00 94 L 02/20/18 03:00 99.9 F H Weight Weight 93.1 kg Most Recent Monitor Data Heart Rate from ECG 85 NIBP 121/66 NIBP BP-Mean 84 Respiration from ECG 22 SpO2 95 I&O: 02/19/18 02/20/18 02/21/18 06:59 06:59 06:59 Intake Total 2431 1414 480 Output Total 1183 1520 Balance 1248 106 480 Result Diagrams: 02/20/18 05:30 02/20/18 05:30 <Srinivasa Mcallister - Last Filed: 02/20/18 11:20> Phys Exam - Physical Examination Constitutional: NAD HEENT: moist MMs Neck: supple Respiratory: clear to auscultation bilateral Cardiovascular: RRR Gastrointestinal: soft Musculoskeletal: no edema, pulses present Neurological: non-focal Psychiatric: normal affect, A&O x 3 Skin: no rash, cap refill <2 seconds Deviation from normal: sternotomy site covered in bandages, clean and dry <Sravanthi Tao - Last Filed: 02/20/18 10:59> Dx/Plan (1) Coronary artery disease Code(s): I25.10 - ATHSCL HEART DISEASE OF [place] CORONARY ARTERY W/O ANG PCTRS Status: Acute (2) Unstable angina Status: Acute (3) Elevated troponin Code(s): R74.8 - ABNORMAL LEVELS OF OTHER SERUM ENZYMES Status: Acute (4) Hypertension Code(s): I10 - ESSENTIAL (PRIMARY) HYPERTENSION Status: Chronic - Plan Plan: 72YO gentleman with a history of stable angina who presented to the ED with a CC of chest pain that has been occurring at rest over the last 1-2 weeks. Severe 3V CAD s/p CABG - Post op day #2 - 2 mediastinal chest tubes removed this AM - Patient tolerating PO - FLP wnl. - Cardiology and CV surgery consulted; appreciate recs. - Continue statin medication. - Continue home meds. HTN: - Patient denies being diagnosed w/ HTN but is on antihypertensive medications. - BP has been well-controlled since admission. BP since surgery has been running low. - Continue home medications as tolerated. Dispo: Stable. Cardiology and CV surgery consulted. Post-op day #2. Will continue to follow cardiology and CV surgery recs. <Sravanthi Tao - Last Filed: 02/20/18 10:59> Attending Addendum - Attending Addendum Date/Time: 02/20/18 1120 I personally evaluated the patient and discussed the management with Dr. Tao. I agree with the History, Examination, Assessment and Plan documented above with any addition or exceptions noted below. <Srinivasa Mcallister - Last Filed: 02/20/18 11:20>
[2018-02-20] MEDS: Rosuvastatin 20 MG TAB PO SCH (20:40)
[2018-02-20] MEDS: Enoxaparin Sodium 40 MG/0.4 ML SYRINGE SC SCH (20:42)
[2018-02-20] MEDS ORDERED: Atorvastatin Calcium 20 MG TAB PO SCH (21:00)
[2018-02-20] MEDS ORDERED: Simvastatin 40 MG TAB PO SCH (21:00)
--- NOTE | 2018-02-21 05:41 | PDOC.FM ---
- Subjective Subjective: Patient doing well this AM. No significant overnight events. Patient has been stable and is ready for transfer to telemetry unit, but there are no beds currently available on telemetry. Patient is likely to go home in next 1-2 days. - Objective MAR Reviewed: Yes Vital Signs & Weight: Vital Signs (12 hours) Temp Pulse Resp BP BP Pulse Ox 02/21/18 04:00 99.6 F 02/21/18 00:00 99.4 F 96 21 H 139/74 94 L 02/20/18 20:00 100.1 F H 108 H 18 144/82 H 97 Weight Weight 93.1 kg Most Recent Monitor Data Heart Rate from ECG 85 NIBP 121/66 NIBP BP-Mean 84 Respiration from ECG 22 SpO2 95 I&O: 02/19/18 02/20/18 02/21/18 06:59 06:59 06:59 Intake Total 2431 1414 480 Output Total 1183 1520 100 Balance 1248 -106 380 Result Diagrams: 02/20/18 05:30 02/20/18 05:30 EKG Reviewed by me: Yes Radiology Reviewed by me: Yes <Sravanthi Tao - Last Filed: 02/21/18 11:31> - Objective Vital Signs & Weight: Vital Signs (12 hours) Temp Pulse Resp BP BP Pulse Ox 02/21/18 13:15 99.3 F 103 H 18 98/63 94 L 02/21/18 10:50 93 146/91 H 97 02/21/18 08:00 98.2 F 108 H 18 117/85 95 02/21/18 04:00 99.6 F Weight Weight 91.852 kg Most Recent Monitor Data Heart Rate from ECG 85 NIBP 121/66 NIBP BP-Mean 84 Respiration from ECG 22 SpO2 95 I&O: 02/20/18 02/21/18 02/22/18 06:59 06:59 06:59 Intake Total 1414 480 Output Total 1520 100 Balance -106 380 Result Diagrams: 02/20/18 05:30 02/20/18 05:30 <Srinivasa Mcallister - Last Filed: 02/21/18 15:54> Phys Exam - Physical Examination Constitutional: NAD HEENT: moist MMs Neck: supple Respiratory: no wheezing Cardiovascular: RRR Gastrointestinal: soft, non-tender, no distention, positive bowel sounds Musculoskeletal: no edema, pulses present Neurological: non-focal Psychiatric: normal affect, A&O x 3 Skin: no rash, cap refill <2 seconds <Sravanthi Tao - Last Filed: 02/21/18 11:31> Dx/Plan (1) Coronary artery disease Code(s): I25.10 - ATHSCL HEART DISEASE OF [place] CORONARY ARTERY W/O ANG PCTRS Status: Acute (2) Unstable angina Status: Acute (3) Elevated troponin Code(s): R74.8 - ABNORMAL LEVELS OF OTHER SERUM ENZYMES Status: Acute (4) Hypertension Code(s): I10 - ESSENTIAL (PRIMARY) HYPERTENSION Status: Chronic - Plan Plan: 72YO gentleman with a history of stable angina who presented to the ED with a CC of chest pain that has been occurring at rest over the last 1-2 weeks. Severe 3V CAD s/p CABG - Post op day #3 - Patient tolerating PO - FLP wnl. - Cardiology and CV surgery consulted; appreciate recs. - Continue statin medication. - Continue home meds. HTN: - Patient denies being diagnosed w/ HTN but is on antihypertensive medications. - BP has been well-controlled since admission. BP back to baseline after surgery. - Continue home medications as tolerated. Dispo: Stable. Cardiology and CV surgery consulted. Post-op day #3. Will continue to follow cardiology and CV surgery recs. <Sravanthi Tao - Last Filed: 02/21/18 11:31> Attending Addendum - Attending Addendum Date/Time: 02/21/18 7537 I personally evaluated the patient and discussed the management with Dr. Tao. I agree with the History, Examination, Assessment and Plan documented above with any addition or exceptions noted below. <Srinivasa Mcallister - Last Filed: 02/21/18 15:54>
[2018-02-21] MEDS ORDERED: Metoprolol Tartrate 25 MG TAB PO SCH (09:00)
[2018-02-21] MEDS: Famotidine 20 MG TAB PO SCH ×2 (09:45→22:24)
[2018-02-21] MEDS: Furosemide 40 MG TAB PO SCH (09:45)
[2018-02-21] MEDS: Potassium Chloride 10 MEQ TAB PO SCH (09:46)
[2018-02-21] MEDS: Aspirin 325 mg Enteric Coated Tablet PO SCH (09:46)
[2018-02-21] MEDS: Polyethylene Glycol 3350 17 GM Packet PO SCH (09:47)
--- NOTE | 2018-02-21 10:25 | PRG ---
DATE OF SERVICE: 02/20/2018 SERVICE: Pulmonary Medicine. INTERVAL HISTORY: The patient is doing absolutely wonderful from respiratory standpoint. He has no complaints of chest pain, fevers, or chills. Otherwise, there has been no interval change to his condition. He is doing fantastic in the postoperative period. He is tolerating a diet and had a bowel movement. PHYSICAL EXAMINATION: VITAL SIGNS: Afebrile. Pulse 85, blood pressure 98/61, respirations 22, saturations 95% on room air. GENERAL: The patient is awake and alert, in no apparent distress. LUNGS: Decent air entry. There is no prolonged expiratory phase or wheezing present. There is decreased air entry at the base. HEART: Normal rate. Regular. ABDOMEN: Soft, nontender, and nondistended. Bowel sounds are positive. MUSCULOSKELETAL: No cyanosis or clubbing. There is no pitting in the bilateral lower extremities. NEUROLOGIC: Nonfocal. LABORATORY DATA: WBC 10.7, hemoglobin 10.7, platelets 138,000. Basic metabolic profile is essentially unremarkable except for gently uptrending creatinine of 1.04. IMAGING STUDIES: Chest x-ray demonstrates left basilar pleural effusion is present. There is mediastinal drains present x2. Left-sided infiltrate is possibly present in the lingula. Otherwise, lines and tubes remain stable. ASSESSMENT: 1. Acute hypoxic respiratory failure, resolved. 2. Coronary artery disease, status post coronary artery bypass graft, postop day 2. 3. Pleural effusion, on the left. DISCUSSION AND PLAN: The patient has some changes on the chest x-ray and likely pleural effusion on the left. That being said, clinically, he is feeling fantastic. As such, he is stable for transition out of the ICU to the Telemetry unit. Pulmonary will continue to follow in this location. Ultimately, he will require repeat chest x -ray in a couple of weeks to verify the infiltrate, and effusion are gone. If he develops evidence of systemic inflammatory response, a thoracentesis and empiric antibiotic should be considered. Job ID: [id number] MTDD
--- NOTE | 2018-02-21 15:37 | PRG ---
DATE OF SERVICE: 02/21/2018 SERVICE: Pulmonary Medicine. INTERVAL HISTORY: The patient is doing fine from a respiratory standpoint. He is breathing comfortably. He denies any current chest pain, fevers, chills, nausea, or vomiting. There has been no interval change to his condition. Otherwise, he is actually doing quite well. PHYSICAL EXAMINATION: VITAL SIGNS: Afebrile. Pulse 93, blood pressure 146/91, respirations 18, and saturations 97% on room air. GENERAL: The patient is awake and alert, in no apparent distress. LUNGS: There is excellent air entry. There is no prolonged expiratory phase. The left base has decreased air entry, however. Minimal dependent crackles are identified. HEART: Normal rate. Regular. ABDOMEN: Soft, nontender, and nondistended. Bowel sounds are positive. MUSCULOSKELETAL: No cyanosis or clubbing. There is no pitting in the bilateral lower extremities. NEUROLOGIC: Grossly nonfocal. ASSESSMENT: 1. Acute hypoxic respiratory failure, resolved. 2. Coronary artery disease, status post coronary artery bypass graft, postop day 3. 3. Left-sided pleural effusion. DISCUSSION AND PLAN: The patient is doing absolutely fantastic. We can gently diurese him through time. He is stable for transition to the Telemetry unit. From my perspective, he will need an outpatient chest x-ray in a couple of weeks. If the effusion persists, a Pulmonary consultation should be considered in the outpatient basis. If he has any development of sepsis criteria, thoracentesis of this space could be considered sooner. That being said, since he is asymptomatic, I think it is reasonable to take a conservative approach. I will have him follow up with me in a couple of weeks with a chest x-ray. If he remains in-house, Pulmonary will continue to follow. Job ID: [id number]
[2018-02-21] MEDS: Enoxaparin Sodium 40 MG/0.4 ML SYRINGE SC SCH (22:24)
[2018-02-21] MEDS: Rosuvastatin 20 MG TAB PO SCH (22:25)
--- NOTE | 2018-02-22 07:04 | PDOC.FM ---
- Subjective Subjective: Patient doing well this AM. No significant overnight events. Patient ready for d /c home. He denies any chest pain, shortness of breath, or palpitations. - Objective MAR Reviewed: Yes Vital Signs & Weight: Vital Signs (12 hours) Temp Pulse Resp BP Pulse Ox 02/22/18 04:00 98.7 F 94 16 134/78 92 L 02/21/18 20:00 99.1 F 109 H 18 123/77 98 Weight Weight 90.718 kg Most Recent Monitor Data Heart Rate from ECG 85 NIBP 121/66 NIBP BP-Mean 84 Respiration from ECG 22 SpO2 95 I&O: 02/21/18 02/22/18 02/23/18 06:59 06:59 06:59 Intake Total 480 Output Total 100 Balance 380 Result Diagrams: 02/20/18 05:30 02/20/18 05:30 EKG Reviewed by me: Yes Radiology Reviewed by me: Yes <Sravanthi Tao - Last Filed: 02/22/18 14:30> - Objective Vital Signs & Weight: Vital Signs (12 hours) Temp Pulse Pulse Pulse Resp BP BP 02/22/18 08:30 104 H 93 126/75 119/91 H 02/22/18 08:00 02/22/18 07:50 97.7 F 95 16 02/22/18 04:00 98.7 F 94 16 BP BP Pulse Ox Pulse Ox Pulse Ox 02/22/18 08:30 97 94 L 02/22/18 08:00 95 02/22/18 07:50 109/78 94 L 02/22/18 04:00 134/78 92 L Weight Weight 90.718 kg Most Recent Monitor Data Heart Rate from ECG 85 NIBP 121/66 NIBP BP-Mean 84 Respiration from ECG 22 SpO2 95 I&O: 02/21/18 02/22/18 02/23/18 06:59 06:59 06:59 Intake Total 480 120 Output Total 100 Balance 380 120 Result Diagrams: 02/20/18 05:30 02/20/18 05:30 <Maria Antonia Acevedo - Last Filed: 02/22/18 14:36> Phys Exam - Physical Examination Constitutional: NAD HEENT: moist MMs Respiratory: no wheezing, clear to auscultation bilateral Cardiovascular: RRR Gastrointestinal: soft, no distention Musculoskeletal: no edema, pulses present Neurological: non-focal Psychiatric: normal affect, A&O x 3 Skin: no rash, cap refill <2 seconds <Sravanthi Tao - Last Filed: 02/22/18 14:30> Dx/Plan (1) Coronary artery disease Code(s): I25.10 - ATHSCL HEART DISEASE OF [place] CORONARY ARTERY W/O ANG PCTRS Status: Acute (2) Unstable angina Status: Acute (3) Elevated troponin Code(s): R74.8 - ABNORMAL LEVELS OF OTHER SERUM ENZYMES Status: Acute (4) Hypertension Code(s): I10 - ESSENTIAL (PRIMARY) HYPERTENSION Status: Chronic - Plan Plan: 72YO gentleman with a history of stable angina who presented to the ED with a CC of chest pain that has been occurring at rest over the last 1-2 weeks. Severe 3V CAD s/p CABG - Post op day #4 - FLP wnl. - Cardiology and CV surgery consulted; appreciate recs. - Continue statin medication. - Continue home meds. Pleural effusion HTN: - Patient denies being diagnosed w/ HTN but is on antihypertensive medications. - BP has been well-controlled since admission. BP back to baseline after surgery. - Continue home medications as tolerated. Dispo: Stable. Cardiology and CV surgery consulted. Post-op day #4. Plan for d/ c home according to CV surgery recs. Patient has follow up appt scheduled with [facility]. <Sravanthi Tao - Last Filed: 02/22/18 14:30> Attending Addendum - Attending Addendum Date/Time: 02/22/18 3097 I personally evaluated the patient and discussed the management with Dr. Tao. I agree with the History, Examination, Assessment and Plan documented above with any addition or exceptions noted below. Patient is doing well post-cabg. He has been cleared by cv surg for discharge. <Maria Antonia Acevedo - Last Filed: 02/22/18 14:36>
[2018-02-22 08:09] VITALS: TEMP 97.7
[2018-02-22] MEDS: Famotidine 20 MG TAB PO SCH (09:12)
[2018-02-22] MEDS: Potassium Chloride 10 MEQ TAB PO SCH (09:13)
[2018-02-22] MEDS: Aspirin 325 mg Enteric Coated Tablet PO SCH (09:13)
[2018-02-22] MEDS: Furosemide 40 MG TAB PO SCH (09:13)
[2018-02-22 13:04] VITALS: BP 126/75
--- NOTE | 2018-02-22 16:09 | EKG ---
Test Reason : Blood Pressure : / mmHG Vent. Rate : 079 BPM Atrial Rate : 079 BPM P-R Int : 156 ms QRS Dur : 098 ms QT Int : 356 ms P-R-T Axes : 021 009 017 degrees QTc Int : 408 ms Normal sinus rhythm Nonspecific T wave abnormality Abnormal ECG Confirmed by MARIAH WATKINS ([id number]), assignment editor NIKITA RAMIREZ ([id number]) on 02/22/2018 4:09:07 PM Referred By: Confirmed By:MARIAH WATKINS
--- NOTE | 2018-02-23 04:31 | DIS ---
DATE OF ADMISSION: 02/15/2018 DATE OF DISCHARGE: 02/22/2018 HOSPITAL COURSE: This is a 72-year-old gentleman, who was admitted by the [facility] on February 14 with unstable anginal symptoms including nocturnal rest pain. He was seen in consultation by Dr. Olsen and cardiac catheterization was performed on February 15. I saw him in consultation and recommended coronary bypass grafting. He had a carotid ultrasound done prior to surgery demonstrating right internal carotid velocity of 126 cm per second and left of 135 cm per second. He was taken to the operating room on February 18, where he underwent bypass grafting to the LAD, ramus, and OM. Saphenous vein was small, but suitable. His postoperative course was uneventful and he received no perioperative transfusions with a discharge hemoglobin of 10.7 and a creatinine of 1. He will be discharged home on metoprolol 25 b.i.d., Crestor 20 daily, aspirin 1 a day, and [place] for pain. Discharge and followup instructions have been given. Job ID: [id number]
== END 2018-02-22 11:46 | disposition home or self-care (01) | DRG 233 ==
LOC: ERS 21:48 → ERHOLD 23:16 → 2SW 02-15 00:25 → OBSVTOIN 02-15 11:46 → 2NO 02-16 17:30 → CCU 02-18 09:10 → 2NO 02-21 19:35
PROVIDERS: ADMIT Student in an Organized Health Care Education/Training Program; ATTEND Student in an Organized Health Care Education/Training Program
PROC: 4A023N7 Measurement of Cardiac Sampling and Pressure, Left Heart, Percutaneous Approach (ICD-10-PCS; 2018-02-17)
PROC: B2111ZZ Fluoroscopy of Multiple Coronary Arteries using Low Osmolar Contrast (ICD-10-PCS; 2018-02-17)
PROC: B2151ZZ Fluoroscopy of Left Heart using Low Osmolar Contrast (ICD-10-PCS; 2018-02-17)
PROC: 02100Z9 Bypass Coronary Artery, One Artery from Left Internal Mammary, Open Approach (ICD-10-PCS; principal; 2018-02-18)
PROC: 021209W Bypass Coronary Artery, Three Arteries from Aorta with Autologous Venous Tissue, Open Approach (ICD-10-PCS; 2018-02-18)
PROC: 06BP0ZZ Excision of Right Saphenous Vein, Open Approach (ICD-10-PCS; 2018-02-18)
PROC: 5A1221Z Performance of Cardiac Output, Continuous (ICD-10-PCS; 2018-02-18)
DX: I21.4 Non-ST elevation (NSTEMI) myocardial infarction (principal); J96.01 Acute respiratory failure with hypoxia; J90 Pleural effusion, not elsewhere classified; K21.9 Gastro-esophageal reflux disease without esophagitis; Z79.899 Other long term (current) drug therapy; Z79.82 Long term (current) use of aspirin; I25.110 Atherosclerotic heart disease of native coronary artery with unstable angina pectoris; E78.5 Hyperlipidemia, unspecified; I08.1 Rheumatic disorders of both mitral and tricuspid valves; I10 Essential (primary) hypertension
CPT/HCPCS: 36415; 36416; 36430; 71045; 80048; 80053; 80061; 82550; 82553; 82805; 83690; 84484; 85025; 85347; 85610; 85730; 86850; 86900; 86901; 93005; 93010; 93458; 93798; 93880; 94002; 94150; 94760; 96372; 99152; C1769; J0153; J1642; J1644; J1650; J1815; J1885; J2001; J2150; J2250; J2270; J2440; J2704; J3010; J3370; J3475; J3480; J7050; P9045; S0017; S0028

== ENCOUNTER 2019-07-12 10:34 | Emergency (ER) | payer MEDICARE, OTHER | END 2019-07-12 11:01 | disposition home or self-care (01) | LOC: ERS 10:34 | DX: B34.9 Viral infection, unspecified (principal); Z79.82 Long term (current) use of aspirin | CPT/HCPCS: 99283 ==